=== PATIENT | male | born 1960 | race Caucasian/White ===

== ENCOUNTER 2021-11-05 17:55 | Emergency (ER) | payer OTHER, SELFPAY ==
[2021-11-05 18:03] VITALS: BP 165/99; PULSE 62; RESP 16; TEMP 37; O2SAT 99
--- NOTE | 2021-11-05 19:04 | ED.GENADULT ---
HPI - General Adult General Chief complaint: Extremity Problem,Nontraumatic Stated complaint: Headache, pain running down arm Source: patient Mode of arrival: ambulatory Limitations: no limitations History of Present Illness HPI narrative: Patient presents for evaluation of left lateral neck pain with radiation down the left upper extremity. Symptom onset 10 days ago. He cannot identify any recent injury. He states that he woke from sleep with the symptoms and thought he had slept on it wrong . Pain is constant, described as a tendon being pulled rated 9 out of 10 in severity. He denies any chest pain or jaw pain. She has been taking 400 mg of ibuprofen for symptoms with mild improvement thereafter. Reports some numbness and tingling in the third and fourth digits of his left hand. He is right-hand dominant. He had similar symptoms many years ago and had an MRI of his neck performed. Not believe that there were any significant abnormalities. He states he went to a chiropractor at that time and his pain resolved following chiropractic sessions. He returned to see recurrent this episode of symptoms but has not had any relief. He states that chiropractor performed x-ray since the time of symptom onset and was not told that there were any abnormalities. He is attempting to get into a primary care provider but states that they have rescheduled his appointment several times. He is also requesting refills on his losartan 100 mg and hydrochlorothiazide 25 mg to hold him over until his appointment on 11/14/2021. Denies any chest pain or shortness of breath. Pain in his neck is worse with movement but he denies a stiff neck per se. He denies any fever or chills or infectious symptoms. Related Data Home Medications Medication Instructions Recorded Confirmed hydrochlorothiazide 25 mg tablet 25 mg PO DAILY 11/05/21 11/05/21 losartan 100 mg tablet 100 mg PO DAILY 11/05/21 11/05/21 Allergies Allergy/AdvReac Type Severity Reaction Status Date / Time No Known Allergies Allergy Verified 11/05/21 18:16 Review of Systems Review of Systems: CONSTITUTIONAL: Denies fever, chills, or sweats. EYES: Denies visual changes, redness, or discharge. ENT: Denies rhinorrhea, congestion, sore throat, or otalgia. CARDIOVASCULAR: Denies chest pain, palpitations, or edema. RESPIRATORY: Denies cough or dyspnea. GASTROINTESTINAL: Denies abdominal pain, nausea, vomiting, or diarrhea. GENITOURINARY: Denies dysuria or hematuria. SKIN: Denies rash or itching. MUSCULOSKELETAL: Reports neck pain with radiation into LUE. NEUROLOGIC: Responds and tingling in the third and fourth digits of the left hand. Denies headache, dizziness, or weakness. PSYCHIATRIC: Denies anxiety or depression. PMFSH Past Medical History Medical History Cervical radiculopathy Hyperlipidemia Hypertension Surgical History Surgical History No pertinent past surgical history Family History Family History Mother Family history non-contributory Social History Social History Substance use: never Living arrangements: with family Gender identity (if verbalized by the patient): Male Sexual Orientation (if Verbalized by the Patient): Straight or Heterosexual Spiritual care concerns: No Exam Narrative: GENERAL: Well-appearing, well-nourished, and in no acute distress. HEAD: Normocephalic, atraumatic. EYES: PERRLA and EOMI. ENT: Nares clear, no rhinorrhea or epistaxis. Mucous membranes moist. Oropharynx without tonsillar hypertrophy exudate or other lesions. Bilateral TMs pearly smith nonbulging NECK: Supple. No adenopathy or masses. No carotid bruits or JVD. No tenderness in midline or paraspinous muscles bilaterally of cervical
== END 2021-11-05 18:51 | disposition home or self-care (01) ==
PROVIDERS: Emergency Provider Nurse Practitioner
DX: M54.12 Radiculopathy, cervical region (principal); I10 Essential (primary) hypertension; E78.5 Hyperlipidemia, unspecified
CPT/HCPCS: 99213; G0463